=== PATIENT | male | born 1950 | race Caucasian/White ===

== ENCOUNTER 2017-06-03 11:14 | Day surgery (SDC) | payer BC ==
[2017-06-03] MEDS ORDERED: ceFAZolin 2 GM/SWFI 2 GM/20 ML SYR IVP ONE (11:34)
[2017-06-03] MEDS ORDERED: LIDOCAINE 1% 2 ML INJ ID PRN (11:35)
[2017-06-03] MEDS ORDERED: LR 1,000 ML IV ONE (11:35)
[2017-06-03 12:12] VITALS: PULSE 62
--- NOTE | 2017-06-03 12:36 | PDHPUP ---
History & Physical Update H&P update statement: This history and physical update is based on an assessment of the patient which was completed after admission or registration (within 24 hours), but prior to the surgery/procedure. H&P update: H&P reviewed & patient examined, no change in patient's condition since H&P completed
--- NOTE | 2017-06-03 12:48 | PDANEPAE ---
ANE History of Present Illness Right inguinal hernia ANE Past Medical History - Cardiovascular History Hx Hypertension: No Hx Arrhythmias: No Hx Chest Pain: No Hx Coronary Artery / Peripheral Vascular Disease: No Hx CHF / Valvular Disease: No Hx Palpitations: No - Pulmonary History Hx COPD: No Hx Asthma/Reactive Airway Disease: No Hx Recent Upper Respiratory Infection: No Hx Oxygen in Use at Home: No Hx Sleep Apnea: No Sleep Apnea Screening Result - Last Documented: Positive - Neurologic History Hx Cerebrovascular Accident: No Hx Seizures: No Hx Dementia: No - Endocrine History Hx Diabetes: No - Renal History Hx Renal Disorders: No - Liver History Hx Hepatic Disorders: No - Neurological & Psychiatric Hx Hx Neurological and Psychiatric Disorders: No - Cancer History Hx Cancer: No - Congenital Disorder History Hx Congenital Disorders: No - GI History Hx Gastrointestinal Disorders: No - Other Health History Other Health History: NONE - Chronic Pain History Chronic Pain: Yes (ARTHRITIS SHOULDERS/KNEES) - Surgical History Prior Surgeries: NONE ANE Review of Systems Review of Systems: - Exercise capacity METS (RN): 5 METS ANE Patient History - Allergies Allergies/Adverse Reactions: No Known Allergies Allergy (Verified 05/31/17 15:51) - Home Medications Home medications: home medication list seen and reviewed Home Medications: Flomax 0.4 MG (*) 06/03/17 [Last Taken 05/31/17] - NPO status NPO Since - Liquids (Date): 06/02/17 NPO Since - Liquids (Time): 22:00 NPO Since - Solids (Date): 06/02/17 NPO Since - Solids (Time): 22:00 - Anes Hx Anes Hx: no prior problems - Smoking Hx Smoking Status: Former smoker - Family Anes Hx Family Hx Anesthesia Complications: NONE ANE Labs/Vital Signs - Vital Signs Blood Pressure: 128/90 Heart Rate: 62 Respiratory Rate: 18 O2 Sat (%): 97 Height: 167.64 cm Weight: 73.936 kg ANE Physical Exam - Airway Neck exam: FROM Mallampati Score: Class 2 Mouth exam: normal dental/mouth exam - Pulmonary Pulmonary: no respiratory distress - Cardiovascular Cardiovascular: regular rate and rhythym - ASA Status ASA Status: I ANE Anesthesia Plan Anesthesia Plan: general endotracheal anesthesia
[2017-06-03] MEDS ORDERED: MIDAZOLAM 2 MG/2 ML VIAL IVP ONE (12:49)
[2017-06-03] MEDS ORDERED: BUPIVACAINE 0.5% 30 ML SDV ONE (12:55)
[2017-06-03] MEDS ORDERED: LIDOCAINE 2% 5 ML SDV ONE (13:06)
[2017-06-03] MEDS ORDERED: fentaNYL 100 MCG/2 ML INJ ONE ×2 (13:06→14:24)
[2017-06-03] MEDS ORDERED: PROPOFOL 200 MG/20 ML VIAL ONE (13:06)
[2017-06-03] MEDS ORDERED: ROCURONIUM 50 MG/5 ML VIAL ONE ×2 (13:07→14:23)
[2017-06-03] MEDS ORDERED: PHENYLEPHRINE HCL 100 MCG/ML SYR ONE (13:41)
[2017-06-03] MEDS ORDERED: PROMETHAZINE HCL 25 MG/ML INJ IVP PRN (13:47)
[2017-06-03] MEDS ORDERED: HYDROmorphONE/DILAUDID 1 MG/ML INJ IVP PRN (13:47)
[2017-06-03] MEDS ORDERED: NALOXONE HCL 0.4 MG/ML INJ IVP PRN (13:47)
[2017-06-03] MEDS ORDERED: fentaNYL 100 MCG/2 ML INJ IVP PRN (13:47)
[2017-06-03] MEDS ORDERED: ONDANSETRON 4 MG/2 ML VIAL IVP PRN (13:47)
[2017-06-03] MEDS ORDERED: DEXAMETHASONE 4 MG/ML VIAL ONE (14:24)
[2017-06-03] MEDS ORDERED: ONDANSETRON 4 MG/2 ML VIAL ONE (14:24)
[2017-06-03] MEDS ORDERED: KETOROLAC 30 MG/1 ML SDV ONE (15:16)
--- NOTE | 2017-06-03 15:21 | POSTOPPROG ---
Post Op Note Date of Operation: 06/03/17 Surgeon: Cayden Roca Shipping And Receiving Weigher: ALVIN Wick Anesthesiologist: Shilo Anesthesia: GET(General Endotracheal) Pre-op Diagnosis: RIH Post-op Diagnosis: bilateral inguinal hernias Procedure: robotic assisted bilateral inguinal hernia repair Findings: kimberly indirect inguinal hernias Inf/Abcess present in the surg proc area at time of surgery?: No EBL: Minimal
--- NOTE | 2017-06-03 15:30 | POSTANESTH ---
Post Anesthetic Evaluation Cardiovascular Status: Normal, Stable Respiratory Status: Normal, Stable Level of Consciousness/Mental Status: Can Participate in Eval Pain Control: Adequate, Prn Tx Ordered Nausea/Vomiting Control: Adequate, Prn Tx Ordered Complications Possibly Related to Anesthesia: None Noted
[2017-06-03] MEDS ORDERED: HYDROmorphONE/DILAUDID 1 MG/ML INJ ONE (15:52)
[2017-06-03 16:22] VITALS: TEMP 97.5
[2017-06-03 16:33] VITALS: RESP 16
[2017-06-03 18:03] VITALS: BP 110/73; O2SAT 98
--- NOTE | 2017-06-04 05:09 | GOP ---
[f rep st] OPERATIVE REPORT DATE OF OPERATION: 06/03/2017 SURGEON: Cayden Roca MD CAD LIBRARIAN: FABRIZIO Lopes. ANESTHESIA: General endotracheal. ANESTHESIOLOGIST: Drew Lao M.D. PREOPERATIVE DIAGNOSIS: Right inguinal hernia. POSTOPERATIVE DIAGNOSIS: Bilateral indirect inguinal hernias. PROCEDURE PERFORMED: Robotic assisted laparoscopic bilateral inguinal hernia repair with mesh. FINDINGS: Upon entering the patient's abdomen, he had a very distended bladder which was successfull y reduced with a Anderson catheter. After this was done, it was apparent that he had both a right and a left inguinal hernia. My attention was first turned toward the right than the left. Both sides had indirect inguinal hernias. Both repaired with Bard 3D light mesh, large size. SPECIMENS: None. ESTIMATED BLOOD LOSS: 5 cc. DESCRIPTION OF PROCEDURE: The patient was greeted in the preoperative suite. Once again, risks, coby efits, and alternatives were discussed. Consent was signed. He was then brought back to the operati ve suite, placed on the OR table in a supine position. After all anesthesia machines, including SCDs , were on and functioning, a [employer] time-out was performed. After successful joe ction of general anesthesia, the patient's abdomen was prepped and draped in typical sterile fashion. I commenced the procedure by making a supraumbilical horizontal incision through which the Veress n eedle was passed. I achieved pneumoperitoneum to 15 mmHg CO2, which was well tolerated by the patien t, through which I inserted a 5-mm Visiport. After this was done, I placed 2 additional 8 mm trocars ; one in the right upper and one in the left lower quadrant, both under direct visualization and upsi zed my umbilical port to an 8 as well. The robot was then successfully docked. Once successfully in the patient's abdomen, it was apparent that he had a very distended bladder which was known preopera tively per patient report from a recent urology visit. I requested Anderson catheterization which succe ssfully drained the bladder and reduced the distention. I turned my attention first toward the patie nt's right side. I scored the peritoneum just superior to the anterior superior iliac spine and rome ied this medially across the midline. I carried my dissection down medially to Wisam's ligament, an d into the space of Retzius and laterally to the extent of my dissection into the psoas muscle. I th en created my preperitoneal pocket, carrying this medially and reducing the sac successfully from the cord structures. It was apparent the patient had only an indirect defect on this side as the direct and femoral spaces were free of defects. I then turned my attention toward repair which was done wi th a Bard 3D Light large size mesh. It was tacked to Wisam's ligament using 2 interrupted 2-0 Vicry l sutures and just laterally to the inferior epigastric vessels with an additional 2-0 Vicryl suture. The peritoneum was then closed with a running 3-0 V-Loc suture. I then turned my attention toward the left side in the exact same fashion as described on the contralateral side. I opened the periton eum, dissected the hernia sac off and repaired the defect with a site specific Bard 3D light mesh on this side, attaching it to Wisam's ligament with 2 interrupted 2-0 Vicryl sutures and just lateral t o the inferior epigastric vessels in the same fashion. Once again, the peritoneum was closed with a running 3-0 V-Loc. After this was done, I inspected the viscera and identified no other significant pathology. I then evacuated my pneumoperitoneum. My port sites were closed with interrupted 4-0 Mon ocryl over which Dermabond was placed. The patient was then extubated in the operative suite and eryn en to the PACU in satisfactory condition. DRAINS: None. COUNTS: All counts were reported as correct x2. /[id number]/MODL
== END 2017-06-03 17:22 | disposition home or self-care (01) ==
LOC: FSGY 11:14
PROVIDERS: ATTEND Surgery
PROC: 8E0W4CZ Robotic Assisted Procedure of Trunk Region, Percutaneous Endoscopic Approach (ICD-10-PCS; principal; 2017-06-03 12:30)
PROC: 0YUA4JZ Supplement Bilateral Inguinal Region with Synthetic Substitute, Percutaneous Endoscopic Approach (ICD-10-PCS; principal; 2017-06-03 12:30)
DX: K40.20 Bilateral inguinal hernia, without obstruction or gangrene, not specified as recurrent (principal); M19.011 Primary osteoarthritis, right shoulder; M19.012 Primary osteoarthritis, left shoulder; M17.11 Unilateral primary osteoarthritis, right knee; M17.12 Unilateral primary osteoarthritis, left knee
CPT/HCPCS: 49650; S2900; C1781; J0690; J1100; J1170; J1885; J2250; J2370; J2405; J2704; J3010